=== PATIENT | female | born 1965 | race Caucasian/White ===

== ENCOUNTER 2017-03-27 07:49 | Day surgery (SDC) | payer BC ==
[2017-03-27] VITALS (15 sets, daily range): BP systolic 104–124; BP diastolic 60–79; PULSE 52–85; RESP 16–18; Ht 177.8 cm; Wt 65.1 kg
[~2017-03-27] VITALS: Ht 177.8 cm; Wt 65.1 kg
[~2017-03-27 07:49] MED LIST: CEFAZOLIN 1 GM/50 ML (PMX) 50 ML IVPB SCH; SOD CHLORIDE 0.9% 1,000 ML IV SCH
--- NOTE | 2017-03-27 09:18 | RADRPT ---
PROCEDURE: XR Chest. CLINICAL INDICATION: Preoperative. Breast cancer. TECHNIQUE: Single frontal view. COMPARISON: None. FINDINGS: The lungs are clear. The heart size is normal. There is no pleural effusion. There is no pneumothorax. IMPRESSION: 1. Normal chest radiograph. RPTAT: QQ .Santosh Rae MD, Date Time Electronically viewed and signed by .Santosh Rae MD, on 03/27/2017 09:18 .R/
[2017-03-27 09:19] LABS: BASOPHILS % 0.3 % (0.0-2.0); EOSINOPHILS # 0.2 10^3/ul (0.0-0.5); EOSINOPHILS % 4.6 % (0.0-7.0); HEMOGLOBIN 12.7 g/dl (12.0-16.0); LYMPHOCYTES # 1.2 10^3/ul (0.8-2.9); LYMPHOCYTES % 31.2 % (15.0-51.0); MEAN CORPUSCULAR HEMOGLOBIN 32.4 pg (29.0-33.0); MEAN CORPUSCULAR HGB CONC 35.3 g/dl (32.0-37.0); MEAN CORPUSCULAR VOLUME 91.8 fl (82.0-101.0); MEAN PLATELET VOLUME 9.3 fl (7.4-10.4); MONOCYTE # 0.4 10^3/ul (0.3-0.9); MONOCYTES % 9.3 % (0.0-11.0); NEUTROPHIL # 2.1 10^3/ul (1.6-7.5); NEUTROPHILS % 54.1 % (39.0-77.0); PLATELET COUNT 226 10^3/UL (140-415); RED BLOOD COUNT 3.92 10^6/ul (4.20-5.40); RED CELL DISTRIBUTION WIDTH 11.6 % (11.5-14.5); WHITE BLOOD COUNT 3.9 10^3/ul (4.8-10.8)
[2017-03-27 09:38] LABS: ALBUMIN 3.9 g/dl (3.3-4.9); ALBUMIN/GLOBULIN RATIO 1.5; BILIRUBIN,INDIRECT 0.7 mg/dl (0-1.1); BILIRUBIN,TOTAL 0.7 mg/dl (0.2-1.3); TOTAL PROTEIN 6.5 g/dl (6.1-8.1)
[2017-03-27 09:42] LABS: CALCIUM 9.3 mg/dl (8.4-10.2); CREATININE 0.74 mg/dl (0.44-1.00); POTASSIUM 3.8 mmol/L (3.5-5.1)
[2017-03-27 09:44] LABS: PARTIAL THROMBOPLASTIN TIME 28.8 Sec (25.0-35.0); PROTIME 13.3 Sec (11.9-14.9)
[2017-03-27] MEDS ORDERED: ISOSULFAN BLUE 1% 5 ML INJ SC ONE (10:55)
[2017-03-27] MEDS ORDERED: METOCLOPRAMIDE 10 MG INJ ONE (11:17)
[2017-03-27] MEDS ORDERED: MIDAZOLAM 1 MG/ML 2 ML INJ ONE (11:17)
[2017-03-27] MEDS ORDERED: FENTAnyl 50 MCG/ML VIAL ONE (11:21)
[2017-03-27] MEDS ORDERED: MEPERIDINE 25 MG INJ IV PRN (12:00)
[2017-03-27] MEDS ORDERED: METOCLOPRAMIDE 10 MG INJ IV PRN (12:00)
[2017-03-27] MEDS ORDERED: DIPHENHYDRAMINE 50 MG INJ IV PRN (12:00)
[2017-03-27] MEDS ORDERED: OXYCODONE/ACETAMINOPHEN (5/325) TAB PO PRN (12:00)
[2017-03-27] MEDS ORDERED: HYDROmorphONE (0.2 MG/ML) 10ML SYG IV PRN ×2 (12:00)
[2017-03-27] MEDS ORDERED: ONDANSETRON 4 MG INJ IV PRN (12:00)
[2017-03-27] MEDS ORDERED: PROPOFOL 20 ML ONE (12:29)
[2017-03-27] MEDS ORDERED: GLYCOPYRROLATE 0.4 MG INJ ONE (12:29)
[2017-03-27] MEDS ORDERED: NEOSTIGMINE 3 MG/3 ML SYRINGE ONE (12:29)
[2017-03-27] MEDS ORDERED: ONDANSETRON 4 MG INJ ONE (12:29)
[2017-03-27] MEDS ORDERED: SUGAMMADEX SODIUM 200 MG/2 ML VIAL IV ONE (12:56)
--- NOTE | 2017-03-27 13:10 | OPR ---
DATE OF OPERATION: 03/27/2017 PREOPERATIVE DIAGNOSIS: Invasive cancer, right breast. POSTOPERATIVE DIAGNOSIS: Invasive cancer, right breast. PROCEDURES: 1. Right partial mastectomy and axillary dissection utilizing sentinel lymph node technique. 2. Local breast flap advancement closure. ANESTHESIA: General. ANESTHESIOLOGIST: Dr. Vyas. LOG CUT OFF SAWYER: Dr. Ludwig Hall and Dr. Guevara . INDICATIONS FOR PROCEDURE: The patient is a 52-year-old female who presented with a palpable mass a djacent to her nipple areolar complex at approximately the 10 o'clock location of the right breast. Subsequent core biopsy confirmed invasive cancer. She was counseled as to the risks versus benefit s of partial mastectomy and sentinel lymph node biopsy. She consented and was scheduled for surgery . DESCRIPTION OF PROCEDURE: The patient was brought to the operating theater, placed under general an esthesia. The right breast and axillary region was prepped and draped in usual sterile fashion. Ap proximately 3-4 mL of 1% Lymphazurin blue dye were then injected peritumorally. The breast was gent ly massaged for approximately 12 minutes. At this point, a 3 cm incision was made in the right axil jessa hairline. Subcutaneous tissue was dissected with cautery down through the clavipectoral fascia . A dye-stained lymphatic was identified and traced to an obvious sentinel node. This node was met iculously resected using the LigaSure device. It was sent for intraoperative analysis performed by attending pathologist, Dr. Ismael Fong intraoperative analysis was possibly suspicious for micromet astases. However, definite metastatic cells could not be confirmed on frozen section. Therefore, t he node was sent for permanent pathologic analysis. Dr. Bhatia inspected the remainder of the axilla . There was no obvious evidence of geovani disease. Therefore, no further lymph nodes were taken. T he wound was irrigated the skin was then reapproximated with 4-0 Vicryl suture in subcuticular fashi on. Attention was then directed to performing the partial mastectomy. An periareolar incision was made from the 12 o'clock location through the 9 o'clock location to the 6 o'clock location. Subcutaneous tissue was dissected with cautery. Skin edges were then elevated with skin hooks and wide circumfe rential dissection of the tissue associated with the mass took place, taking great care to ensure ad equate margin. The patient had subglandular breast implants in place and Dr. Bhatia carefully identi fied the implant and the specimen was dissected off of the underlying implant. Gross analysis of th e specimen revealed good margins. Therefore, no further tissue was taken. The wound was irrigated. Minimal bleeding was controlled with cautery. Due to the large defect and the need to cover the i mplant, Dr. Bhatia mobilized an inferior breast flap of tissue rotated it superiorly and it was sutur ed in place to superior tissue with multiple 4-0 Vicryl sutures. The wound was then irrigated and t he skin was reapproximated with a deep dermal layer of 4-0 Vicryl sutures in interrupted fashion, fo llowed by final skin approximation with 5-0 PDS sutures. Dermabond was applied to both incisions. The patient tolerated the procedure well. The estimated blood loss was 20 mL. There were no compli cations and the patient was transported in stable condition to the recovery room. Dictated By: GIOVANI CHAPA/ERIC Conf#: [id number] DID#: [id number]
--- NOTE | 2017-03-27 13:15 | SIPON ---
Date/Time of Note Date/Time of Note DATE: 03/27/17 TIME: 13:13 Operative Report Preoperative Diagnosis Invasive cancer right breast Postoperative Diagnosis Same Operation/Procedure Performed Right partial mastectomy and axillary dissection utilizing sentinel lymph node technique Surgeon see signature line assistant nurse manager Dr Hall Anesthesia: general Estimated blood loss: 10 - 50 ml's Transfusion Required none Specimen Right partial mastectomy specimen and sentinel lymph node Grafts/Implants none Complications none GIOVANI HARMON MD Mar 27, 2017 13:15
[2017-03-27] MEDS: HYDROmorphONE (0.2 MG/ML) 10ML SYG IV PRN ×2 (13:23→14:10)
[2017-03-27] MEDS ORDERED: HYDROCODONE/APAP (7.5/325) TAB PO PRN (13:30)
[2017-03-27] MEDS ORDERED: CEFAZOLIN 1 GM INJ ONE (14:09)
[2017-03-27] MEDS ORDERED: ROCURONIUM 50 MG INJ ONE (14:09)
[2017-03-27] MEDS ORDERED: EPHEDrine SULFATE 50 MG/5 ML SYG ONE (14:10)
--- NOTE | 2017-03-30 13:22 | RADRPT ---
Vent Rate: 51 bpm RR Interval: 0 msec MN Interval: 168 msec QRS Duration: 90 msec QT Interval: 456 msec QTC Interval: 420 msec P-R-T [place]: 72 - 87 - 70 degrees Sinus bradycardia Otherwise normal ECG Electronically Signed By: Holger Aaron [id number]
== END 2017-03-27 17:25 | disposition home or self-care (01) ==
LOC: SDS 07:49
PROVIDERS: ATTEND Surgery Surgical Oncology
DX: C50.911 Malignant neoplasm of unspecified site of right female breast (principal)
CPT/HCPCS: 19301; 38500; 38792; 71010; 80053; 85025; 85610; 85730; 93005; J0690; J1170; J2250; J2405; J2710; J2765; J3010; Z7512; Z7610; 84703; 88307; 88331; Q9968